=== PATIENT | male | born 1975 | race Caucasian/White ===

== ENCOUNTER 2019-03-29 01:11 | Emergency (ER) | payer OTHER, MEDICAID, SELFPAY ==
[2019-03-29 01:12] VITALS: BP 140/89; PULSE 92; RESP 18; TEMP 37; O2SAT 96; BMI 33.9
--- NOTE | 2019-03-29 01:23 | RAD_ITS ---
STUDY: X-RAY - LEFT FOOT CLINICAL: Male, 43 years old. FELL ON 03/26 -- C/O PAIN ACROSS TOP OF METATARSALS ON LT FOOT AND ENTIRE LT ANKLE -- STATES HE IS UNABLE TO BEAR WEIGHT ON IT NOW TECHNIQUE: 3 view(s) of the foot. COMPARISON: None. FINDINGS: There is an enthesophyte involving the posterior superior calcaneus at the site of insertion of the Achilles tendon. Normal visualized subtalar, talonavicular, calcaneocuboid, tarsal articulations. Normal metatarsi. 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 Normal tibial and fibular sesamoid bones. Normal interphalangeal joint of the great toe. Normal phalanges of the great toe. Normal second through fifth metatarsophalangeal joints. Normal interphalangeal joints and phalanges of the lesser toes. The soft tissue structures are unremarkable. 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 Electronically Signed: Efrain Bajwa, at 1:49 EST Tel , Service support ,
--- NOTE | 2019-03-29 01:23 | RAD_ITS ---
STUDY: X-RAY - LEFT ANKLE REASON FOR EXAM: Male, 43 years old. FELL ON 03/26 -- C/O PAIN ACROSS TOP OF METATARSALS ON LT FOOT AND ENTIRE LT ANKLE -- STATES HE IS UNABLE TO BEAR WEIGHT ON IT NOW TECHNIQUE: 3 view(s) of the ankle. COMPARISON: None. FINDINGS: Normal visualized distal tibia and fibula. Normal medial and lateral malleoli. Normal tibiotalar articulation and ankle mortise. Normal visualized talus and calcaneus. The visualized subtalar, talonavicular, calcaneocuboid and tarsal articulations are normal. The soft tissue structures are unremarkable. RAD/Ankle min 3 Views IMPRESSION: Normal x-ray examination of the ankle. Electronically Signed: Efrain Bajwa, at 1:43 EST Tel , Service support ,
--- NOTE | 2019-03-29 01:24 | ED.VIS.LOWEX ---
History of Present Illness Chief Complaint: Lower Extremity Injury Informant: Patient Occurred: Days - 3 Mechanism/Context: Injury, Slip - on sheet of ice as he was getting out of his car, Work Related Context: Sudden Onset Timing: Continuous Quality of Pain: Aching Location: dorsum of left midfoot Current Severity: Moderate Maximum Severity: Severe Worsened by: weight bearing, dorsiflexion of foot Relieved by: remaining still/rest Associated Symptoms: Negative for: Parasthesia, Weakness, Loss of Funtion Narrative: Patient initially had pain, but was able to bear weight. He has been able to for the last couple days, but the pain is been increasing as he does, now tonight he feels he cannot bear weight because it hurts too bad to put weight on. Denies any other injuries. Past Medical History - Allergies and Home Meds Allergies/Adverse Reactions: Allergies No Known Allergies Allergy (Verified 03/29/19 01:17) Primary Care Physician: [facility] Doctor,Out of [NON-STAFF] - Past Medical History: None Lives: Spouse/ Significant Other Smoking Status: Never smoker Review of Systems Musculoskeletal: Reports: Extremity Pain. Denies: Neck pain, Back pain, Swelling Neurological: Denies: Headache, Weakness, Numbness Physical Exam Vital Signs/Narrative: Vital Signs Temp Pulse Resp BP Pulse Ox 03/29/19 01:12 98.6 F 92 18 140/89 H 96 Inital Vital Signs reviewed: Yes - Extremity Exam Left Ankle: Negative for: Limited ROM - And nontender at malleoli which are not edematous. Joint stable. No tenderness throughout the rest of the lower leg into the proximal fibula. Left Foot: - - Tender along the tibial aspect of the dorsum of the left midfoot and down to the first MTPJ. No deformities. Good range of motion of the toes without tenderness. No tenderness at the lateral aspect of the foot or base of the fifth metatarsal or calcaneus. General: Well nourished, Well developed Head: Normocephalic, Atraumatic Skin: Normal color, No rash, No Trauma Neurological: Alert, Oriented x3, Cranial nerves II-XII grossly intact, Normal Strength, Normal Sensation Psychological: Normal affect, Normal Mood Diagnostic/Tx/Re-eval Clinical Impression(s) from Imaging Studies Ankle X-Ray 03/29/19 01:23 IMPRESSION: Normal x-ray examination of the ankle. 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 Electronically Signed: Efrain Bajwa, at 1:49 EST Tel , Service support , - Medical Decision Making No acute fractures or dislocations. Suspect a sprain. There may be 1 or more ligaments involved in his midfoot. No sign of a Lisfranc injury. Close outpatient follow-up, he is given a prescription for anti-inflammatories and crutches for supportive care. ED Disposition - Plan for ED Patient: Disposition: Home or Assisted Living Diagnosis: Sprain of foot, left Instructions: Sprain Foot Prescriptions: Naproxen [Naprosyn] 500 mg PO BID PRN #20 tab Prescription Printed Referrals: [facility]GROUP OF PHYSICIANS] - As soon as possible
[2019-03-29] MEDS: Acetaminophen/Codeine #3 Tablet 1 TABLET PO (02:11)
[2019-03-29 02:12] VITALS: BP 138/76; PULSE 86; RESP 17; O2SAT 97
--- NOTE | 2019-03-29 02:14 | ED.RN ---
PT FELL AT WORK, RADHAI COMPLETED, [place] [employer] IS NOT IN OUR DATABASE FOR DRUG TESTING, PT IS REFUSING TO CONTACT SCHOOL COORDINATOR ISRA TO SEE IF DRUG TESTING IS NEEDED.
== END 2019-03-29 02:27 | disposition home or self-care (01) ==
PROVIDERS: Emergency Provider Emergency Medicine
DX: S93.602A Unspecified sprain of left foot, initial encounter (principal); W00.0XXA Fall on same level due to ice and snow, initial encounter; Y93.89 Activity, other specified; Y92.9 Unspecified place or not applicable; Y99.0 Civilian activity done for income or pay
CPT/HCPCS: 73610; 73630; 99284